=== PATIENT | female | born 1960 | race American Indian/Alaskan Native ===

== ENCOUNTER → 2017-12-22 | Outpatient (CLI) | payer BC ==
[2017-12-24 14:10] LABS: HPV 16 Negative (Negative); HPV 18 Negative (Negative); HPV OTHER HR TYPES Negative (Negative)
[2017-12-24 19:21] LABS: DIAGNOSIS: CommentN
== END | disposition home or self-care (01) ==
LOC: LAB SHORT 15:00 → LAB 15:00
PROVIDERS: Internal Medicine
DX: Z01.419 Encounter for gynecological examination (general) (routine) without abnormal findings (principal)
CPT/HCPCS: 87624; G0145

== ENCOUNTER 2024-08-20 12:11 | Inpatient (IN) | payer OTHER ==
[~2024-08-20] VITALS: Ht 182.9 cm; Wt 60.9 kg
[~2024-08-20 12:11] MED LIST: ALBU90OI INH; AZIT250 PO; BUDESONIDE-FO10.2 G2; DILT120 PO; FLUT.05NI; FURO40 PO; IPRAT-ALBUT 0.5-3 ML INH; LEVALBUTEROL TA15 G1 INH; MONT10T PO; POTA10T PO; POTASSIUM PHOS PO; PRED20; PRED20 PO; PREG25 PO; Prednisone10 MG PO; SODCHL1 PO; SYMBICORT 160-4.6 GM INH; SYNTHROID88 MCG PO; [UNRECOGNIZED DRUG - OTHER] PO
[2024-08-20] MEDS ORDERED: Mag Sulfate 1 GM/D5% 100ML 100 ML IV ONE (12:30)
[2024-08-20] MEDS ORDERED: Ipratropium/Albuterol SulF 2.5-0.5MG/3 ML Amp INH ONE (12:30)
[2024-08-20 12:43] LABS: BASOPHILS ABSOLUTE AUTO 0.02 K/mm3 (0.00-0.23); BASOPHILS PERCENT AUTO 0 % (0-2); EOSINOPHILS ABSOLUTE AUTO 0.00 K/mm3 (0.00-0.68); EOSINOPHILS PERCENT AUTO 0 % (0-6); Hematocrit 38.0 % (33.0-51.0); Hemoglobin 12.5 g/dL (11.5-16.0); IMMATURE GRAN ABSOLUTE AUTO 0.07 K/mm3 (0.00-0.10); IMMATURE GRAN PERCENT AUTO 1 % (0-1); LYMPHOCYTES ABSOLUTE AUTO 0.42 K/mm3 (0.84-5.20); LYMPHOCYTES PERCENT AUTO 4 % (21-46); MONOCYTES ABSOLUTE AUTO 0.17 K/mm3 (0.16-1.47); MONOCYTES PERCENT AUTO 2 % (4-13); Mean Corpuscular HGB Conc 32.9 g/dL (31.5-36.5); Mean Corpuscular Volume 98 fL (80-100); NEUTROPHILS ABSOLUTE AUTO 9.13 K/mm3 (1.96-9.15); NEUTROPHILS PERCENT AUTO 93 % (41-73); NRBC ABSOLUTE 0.00 K/mm3 (0.00-0.02); NRBC Auto 0.0 /100 WBC (0.0-0.2); Platelet Count 377 K/mm3 (150-400); RDW Coefficient Variation 13.5 % (11.7-14.2); RDW Standard Deviation 49.5 fL (35.1-46.3)
[2024-08-20 13:18] LABS: Alanine Aminotransfer (ALT/SGP 37.0 U/L (12-78); Albumin, Blood 3.5 g/dL (3.4-5.0); Albumin/Globulin Ratio 0.9 (0.8-1.8); Anion Gap 10.0 mmol/L (3-11); Aspartate Aminotrans (AST/SGOT 18.0 U/L (12-37); Bilirubin, Total 0.3 mg/dL (0.1-1.0); Blood Urea Nitrogen 14.0 mg/dL (8-24); CO2, Blood 29.0 mmol/L (21-32); Calcium, Blood 8.9 mg/dL (8.5-10.1); Chloride, Blood 97.0 mmol/L (98-108); Creatinine, Blood 0.67 mg/dL (0.40-1.00); Globulin, Blood 3.7 g/dL (2.2-4.0); Glucose, Blood 221.0 mg/dL (70-99); Potassium, Blood 4.3 mmol/L (3.5-5.5); Sodium, Blood 132.0 mmol/L (136-145); Total Protein, Blood 7.2 g/dL (6.4-8.2)
[2024-08-20 13:56] LABS: Influenza A, PCR NEGATIVE (NEGATIVE); Influenza B, PCR NEGATIVE (NEGATIVE); Resp Syncytial Virus, PCR NEGATIVE (NEGATIVE); SARS-Cov-2 (COVID-19) PCR, MMC NEGATIVE (NEGATIVE)
[2024-08-20] MEDS ORDERED: Ipratropium/Albuterol SulF 2.5-0.5MG/3 ML Amp INH SCH (15:15)
[2024-08-20] MEDS ORDERED: CefTRIAXone Sodium 1,000 MG in NS 100 ML IV SCH (16:00)
[2024-08-20 16:37] VITALS: BP 152/89
--- NOTE | 2024-08-20 16:57 | NUR ---
PT STATES SHE HAS ALLERGIES TO A BUNCH OF MEDICATIONS, BUT SHE IS UNABLE TO LIST THEM. SHE IS ASKING ABOUT PAIN MEDS, AND WHEN I ASKED IF SHE IS ALLERGIC TO ANY SHE SAID PRETTY MUCH EVERYTHING EXCEPT MORPHINE. SHE SAYS THAT [facility] HAS THE LIST, BUT THEY ARE CLOSED TODAY. WILL BRING A LIST OF HOME MEDS WHEN HE COMES BACK IN.
--- NOTE | 2024-08-20 18:33 | NUR ---
SHIFT NOTE: MD WAS ABLE TO GET LIST OF ALLERGIES. ALLERGY LIST UP TO DATE. PT'S PAIN HAS BEEN TREATED WITH MORPHINE PER EMAR. PT ALERT AND ORIENTED AND ABLE TO MAKE HER NEEDS KNOWN. SHE REPORTS ANXIETY AND SOB. SHE IS ON RA WITH SPO2>95%. SHE IS IN NSR 90S DENIES CHEST PAIN/PRESSURE. CALL LIGHT IN REACH, CARE CONTINUES
[2024-08-20 20:09] VITALS: BP 163/84
[2024-08-20 23:38] VITALS: BP 136/92
[2024-08-21 04:14] VITALS: BP 121/67
--- NOTE | 2024-08-21 05:28 | NUR ---
SHIFT SUMMARY PT A&O X4, ANXIOUS AT TIMES. SHE IS COOPERATIVE TO CARE. PT REPORTS BR AT BL AT HOME FOR THE LAST MONTH. HX OF MS, SHE HAS SOME RELATED WEAKNESS. SHE IS ABLE TO REPOSTION HERSELF AND TURN IN BED. HR IN THE 70'S-80'S, SINUS RHYTHM, SHE DENIES ANY CP/PRESSURE, SBP STABLE. O2 >92% ON RA-2L VIA NC, PT REPORTS 2-4L VIA NC AT BASELINE. SHE HAS SOME SOB WITH EXERTION. PT RESTED IN BED MOST OF NIGHT. SHE DID HAVE AN EPISODE OF SOME SOB THIS AM, PRN BREATHING TX GIVEN PT REPORTS FEELING MUCH BETTER AT THSI TIME, BREATHING EVEN AND UNLABORED. PT DENIES ANY QUESTIONS/CONCERNS AT THIS TIME. WILL MONITOR PT AND REPORT TO ONCOMING RN.
[2024-08-21 05:55] LABS: BASOPHILS ABSOLUTE AUTO 0.01 K/mm3 (0.00-0.23); BASOPHILS PERCENT AUTO 0 % (0-2); EOSINOPHILS ABSOLUTE AUTO 0.00 K/mm3 (0.00-0.68); EOSINOPHILS PERCENT AUTO 0 % (0-6); Hematocrit 32.8 % (33.0-51.0); Hemoglobin 11.8 g/dL (11.5-16.0); IMMATURE GRAN ABSOLUTE AUTO 0.05 K/mm3 (0.00-0.10); IMMATURE GRAN PERCENT AUTO 1 % (0-1); LYMPHOCYTES ABSOLUTE AUTO 0.56 K/mm3 (0.84-5.20); LYMPHOCYTES PERCENT AUTO 6 % (21-46); MONOCYTES ABSOLUTE AUTO 0.20 K/mm3 (0.16-1.47); MONOCYTES PERCENT AUTO 2 % (4-13); Mean Corpuscular HGB Conc 36.0 g/dL (31.5-36.5); Mean Corpuscular Volume 95 fL (80-100); NEUTROPHILS ABSOLUTE AUTO 8.30 K/mm3 (1.96-9.15); NEUTROPHILS PERCENT AUTO 91 % (41-73); NRBC ABSOLUTE 0.00 K/mm3 (0.00-0.02); NRBC Auto 0.0 /100 WBC (0.0-0.2); Platelet Count 529 K/mm3 (150-400); RDW Coefficient Variation 13.3 % (11.7-14.2); RDW Standard Deviation 46.6 fL (35.1-46.3)
[2024-08-21 06:25] LABS: Anion Gap 8.0 mmol/L (3-11); Blood Urea Nitrogen 16.0 mg/dL (8-24); CO2, Blood 28.0 mmol/L (21-32); Calcium, Blood 8.4 mg/dL (8.5-10.1); Chloride, Blood 97.0 mmol/L (98-108); Creatinine, Blood 0.72 mg/dL (0.40-1.00); Glucose, Blood 160.0 mg/dL (70-99); Potassium, Blood 4.1 mmol/L (3.5-5.5); Sodium, Blood 129.0 mmol/L (136-145)
[2024-08-21 07:50] VITALS: BP 145/89
[2024-08-21] MEDS ORDERED: Enoxaparin 40 MG/0.4 ML SYR SC SCH (09:00)
[2024-08-21] MEDS ORDERED: Lactobacil 2-S.Thermo-Bifido 1 1 Cap PO SCH (09:00)
[2024-08-21 11:56] VITALS: BP 133/84
[2024-08-21] MEDS ORDERED: Saline Nasal Spray 45 ML PRN (13:20)
[2024-08-21 15:51] VITALS: BP 137/73
--- NOTE | 2024-08-21 17:06 | NUR ---
PT IS A&Ox4 AND ABLE TO MAKE NEEDS KNOWN. SHE IS CURRENTLY ON 1LNC W/O2 SATS > 90%. SHE HAS A PUREWICK IN PLACE D/T URGENCY AND WEAKNESS. SHE WAS ABLE TO AMBULATE TO THE [facility] [place] W/WALKER AND x1 ASSIST TODAY. IS @ THE BEDSIDE. NO NEEDS OR CONCERNS NOTED @ THIS TIME. BED IN LOW POSITION, CALL LIGHT AND PERSONAL BELONGINGS IN REACH.
--- NOTE | 2024-08-21 18:03 | NUR ---
CALLED REPORT TO CELSO DANIELS @ [phone]. PT TRANSPORTED VIA WC TO ROOM [id number] @ 1800.
--- NOTE | 2024-08-21 18:34 | NUR ---
PATIENT ARRIVED TO MEDICAL FLOOR AROUND 1809. A/O X4, TALKATIVE. ON 1 LITER NC. PUREWICK PLACED, PATIENT STATES SHE HAS NO CONTROL OVER HER BLADDER AT THIS TIME DUE TO MS FLAREUP. SKIN INTACT ON TRANSFER. BLANCA ADMIN PER APR. CALL LIGHT IN REACH, ORIENTED TO ROOM. ABLE TO MAKE NEEDS KNOWN.
[2024-08-21 19:27] VITALS: BP 146/82
[2024-08-22 04:36] VITALS: BP 139/90
[2024-08-22] MEDS ORDERED: Albuterol 2.5 MG/3 ML VIAL INH PRN (04:50)
[2024-08-22 06:13] LABS: BASOPHILS ABSOLUTE AUTO 0.01 K/mm3 (0.00-0.23); BASOPHILS PERCENT AUTO 0 % (0-2); EOSINOPHILS ABSOLUTE AUTO 0.00 K/mm3 (0.00-0.68); EOSINOPHILS PERCENT AUTO 0 % (0-6); Hematocrit 35.6 % (33.0-51.0); Hemoglobin 12.0 g/dL (11.5-16.0); IMMATURE GRAN ABSOLUTE AUTO 0.06 K/mm3 (0.00-0.10); IMMATURE GRAN PERCENT AUTO 1 % (0-1); LYMPHOCYTES ABSOLUTE AUTO 0.70 K/mm3 (0.84-5.20); LYMPHOCYTES PERCENT AUTO 7 % (21-46); MONOCYTES ABSOLUTE AUTO 0.30 K/mm3 (0.16-1.47); MONOCYTES PERCENT AUTO 3 % (4-13); Mean Corpuscular HGB Conc 33.7 g/dL (31.5-36.5); Mean Corpuscular Volume 97 fL (80-100); NEUTROPHILS ABSOLUTE AUTO 8.85 K/mm3 (1.96-9.15); NEUTROPHILS PERCENT AUTO 89 % (41-73); NRBC ABSOLUTE 0.00 K/mm3 (0.00-0.02); NRBC Auto 0.0 /100 WBC (0.0-0.2); Platelet Count 382 K/mm3 (150-400); RDW Coefficient Variation 13.2 % (11.7-14.2); RDW Standard Deviation 46.6 fL (35.1-46.3)
--- NOTE | 2024-08-22 06:30 | NUR ---
SHIFT SUMMARY: Pt is admitted for COPD exacerbation and is a full code. Is alert and able to make needs known. ADLs have to SBA - 1p depending on activity. Pain was managed with PRN medication. Purewick in place and draining clear yellow urine.
[2024-08-22 06:39] LABS: Anion Gap 6.0 mmol/L (3-11); Blood Urea Nitrogen 21.0 mg/dL (8-24); CO2, Blood 30.0 mmol/L (21-32); Calcium, Blood 9.0 mg/dL (8.5-10.1); Chloride, Blood 96.0 mmol/L (98-108); Creatinine, Blood 0.59 mg/dL (0.40-1.00); Glucose, Blood 155.0 mg/dL (70-99); Potassium, Blood 4.1 mmol/L (3.5-5.5); Sodium, Blood 128.0 mmol/L (136-145)
[2024-08-22 07:37] VITALS: BP 133/79
[2024-08-22] MEDS ORDERED: Formoterol/Mometasone MDI 5/200 mcg 13 GM INH SCH (10:30)
[2024-08-22] MEDS ORDERED: CefTRIAXone Sodium 1,000 MG in NS 100 ML IV SCH (16:00)
[2024-08-22] MEDS ORDERED: SODCHL1 PO (16:02)
[2024-08-22] MEDS ORDERED: CEFP200 PO (16:02)
[2024-08-22] MEDS ORDERED: VISBIOME 112.51 EACH PO (16:03)
[2024-08-22] MEDS ORDERED: MONT10T PO (16:03)
[2024-08-22] MEDS ORDERED: SPIRIVA RESPIMAT4 G3 INH (16:04)
--- NOTE | 2024-08-22 16:59 | NUR ---
PT DISCHARGED HOME. NEW RX FAXED TO [facility] PER REQUEST. PT ABLE TO STAND AND AMBULATE TO WITH [facility] INDEPENDENTLY. DISCHARGE PACKET AND MEDICATIONS REVIEWED WITH PT AND PT SPOUSE. IV REMOVED AND SITE APPEARS WNL. PT WHEELED DOWN TO PRIVATE VEHICLE BY RN.
[2024-08-22] MEDS ORDERED: Fluticasone 0.05% Nasal Spray SCH (21:00)
[2024-08-24] MEDS ORDERED: Potassium Chloride 10 Meq Tablet SA PO SCH (09:00)
== END 2024-08-22 17:00 | disposition home or self-care (01) | DRG 189 ==
LOC: ER 12:11 → PCU 15:12 → MEDS 08-21 18:06
PROVIDERS: Emergency Medicine; ADMIT Student in an Organized Health Care Education/Training Program
DX: J96.21 Acute and chronic respiratory failure with hypoxia (principal); E87.1 Hypo-osmolality and hyponatremia; I47.19 Other supraventricular tachycardia; J44.1 Chronic obstructive pulmonary disease with (acute) exacerbation; R64 Cachexia; Z68.1 Body mass index [BMI] 19.9 or less, adult; E03.9 Hypothyroidism, unspecified; G35 Multiple sclerosis; R73.9 Hyperglycemia, unspecified; J43.9 Emphysema, unspecified; E88.01 Alpha-1-antitrypsin deficiency; R63.1 Polydipsia; Z88.8 Allergy status to other drugs, medicaments and biological substances; Z88.6 Allergy status to analgesic agent; Z88.5 Allergy status to narcotic agent; Z88.0 Allergy status to penicillin; Z79.890 Hormone replacement therapy; Z79.899 Other long term (current) drug therapy; Z79.51 Long term (current) use of inhaled steroids; Z79.52 Long term (current) use of systemic steroids; Z99.81 Dependence on supplemental oxygen
CPT/HCPCS: 36415; 71045; 80048; 80053; 82947; 83880; 84439; 84481; 84484; 85025; 85379; 87637; 93005; 93010; 94640; 94664; 94762; 96365; 96375; 99285-25; A9270; J0696; J1650; J2919; J3475; J7512

== ENCOUNTER 2024-11-02 07:25 | Emergency (ER) | payer MEDICARE, OTHER ==
[~2024-11-02] VITALS: Ht 182.9 cm; Wt 56.7 kg
[~2024-11-02 07:25] MED LIST changes: +CEFP200 PO; +SPIRIVA RESPIMAT4 G3 INH; +VISBIOME 112.51 EACH PO
[2024-11-02] MEDS ORDERED: Ondansetron HCl 2 MG / ML 2ML Vial IV ONE ×3 (09:35→15:45)
[2024-11-02 09:55] LABS: BASOPHILS ABSOLUTE AUTO 0.08 K/mm3 (0.00-0.23); BASOPHILS PERCENT AUTO 1 % (0-2); EOSINOPHILS ABSOLUTE AUTO 0.14 K/mm3 (0.00-0.68); EOSINOPHILS PERCENT AUTO 1 % (0-6); Hematocrit 41.2 % (33.0-51.0); Hemoglobin 14.0 g/dL (11.5-16.0); IMMATURE GRAN ABSOLUTE AUTO 0.04 K/mm3 (0.00-0.10); IMMATURE GRAN PERCENT AUTO 0 % (0-1); LYMPHOCYTES ABSOLUTE AUTO 3.03 K/mm3 (0.84-5.20); LYMPHOCYTES PERCENT AUTO 27 % (21-46); MONOCYTES ABSOLUTE AUTO 0.88 K/mm3 (0.16-1.47); MONOCYTES PERCENT AUTO 8 % (4-13); Mean Corpuscular HGB Conc 34.0 g/dL (31.5-36.5); Mean Corpuscular Volume 92 fL (80-100); NEUTROPHILS ABSOLUTE AUTO 7.24 K/mm3 (1.96-9.15); NEUTROPHILS PERCENT AUTO 63 % (41-73); NRBC ABSOLUTE 0.00 K/mm3 (0.00-0.02); NRBC Auto 0.0 /100 WBC (0.0-0.2); Platelet Count 393 K/mm3 (150-400); RDW Coefficient Variation 13.2 % (11.7-14.2); RDW Standard Deviation 44.6 fL (35.1-46.3)
[2024-11-02 10:19] LABS: Alanine Aminotransfer (ALT/SGP 40.0 U/L (12-78); Albumin, Blood 3.0 g/dL (3.4-5.0); Albumin/Globulin Ratio 0.9 (0.8-1.8); Anion Gap 6.0 mmol/L (3-11); Aspartate Aminotrans (AST/SGOT 31.0 U/L (12-37); Bilirubin, Total 0.4 mg/dL (0.1-1.0); Blood Urea Nitrogen 12.0 mg/dL (8-24); CO2, Blood 26.0 mmol/L (21-32); Calcium, Blood 8.5 mg/dL (8.5-10.1); Chloride, Blood 101.0 mmol/L (98-108); Creatinine, Blood 0.52 mg/dL (0.40-1.00); Globulin, Blood 3.4 g/dL (2.2-4.0); Glucose, Blood 106.0 mg/dL (70-99); Magnesium, Blood 2.0 mg/dL (1.6-2.4); Phosphorus, Blood 5.6 mg/dL (2.5-4.9); Potassium, Blood 3.2 mmol/L (3.5-5.5); Sodium, Blood 130.0 mmol/L (136-145); Total Protein, Blood 6.4 g/dL (6.4-8.2)
[2024-11-02] MEDS ORDERED: Morphine Sulfate 4 MG/1 ML Injection IV ONE (10:20)
[2024-11-02 10:50] LABS: Influenza A, PCR NEGATIVE (NEGATIVE); Influenza B, PCR NEGATIVE (NEGATIVE); Resp Syncytial Virus, PCR NEGATIVE (NEGATIVE); SARS-Cov-2 (COVID-19) PCR, MMC NEGATIVE (NEGATIVE)
[2024-11-02 11:20] LABS: Source, Urine Clean Catch
[2024-11-02 11:26] LABS: Bilirubin, Urine Neg (Neg); Color, Urine Yellow (P-Yellow); Glucose Qualitative, Urine Neg (Neg); Ketones, Urine Neg (Neg); Leukocyte Esterase, Urine Neg (Neg); Protein, Urine 1+ (Neg); Specific Gravity, Urine 1.010 (1.003-1.022); Urobilinogen, Urine NORM (Normal)
[2024-11-02 11:32] LABS: Red Blood Cells, Urine 0-2 /hpf (0-2); White Blood Cells, Urine 0-2 /hpf (0-5)
[2024-11-02] MEDS ORDERED: NS 1,000 ML IV SCH (11:35)
[2024-11-02] MEDS ORDERED: ONDA4ODT MM (14:54)
[2024-11-02 15:30] VITALS: BP 133/90
== END 2024-11-02 16:19 | disposition home or self-care (01) ==
LOC: ER 07:25
PROVIDERS: Physician Assistant
DX: R11.2 Nausea with vomiting, unspecified (principal); J44.89 Other specified chronic obstructive pulmonary disease; Z79.51 Long term (current) use of inhaled steroids; Z79.899 Other long term (current) drug therapy; Z79.52 Long term (current) use of systemic steroids; Z88.0 Allergy status to penicillin; Z88.5 Allergy status to narcotic agent; Z88.6 Allergy status to analgesic agent
CPT/HCPCS: 51701; 71045; 80053; 81001; 83605; 83690; 83735; 84100; 84484; 85025; 87637; 93005; 93010; 96361; 96374; 96375; 96376; 99284-25; A9270; J2270; J2405; J3480; J7030; J7050; J7120

== ENCOUNTER 2024-11-04 10:11 | Emergency (ER) | payer MEDICARE, OTHER ==
[~2024-11-04] VITALS: Ht 182.9 cm; Wt 54.4 kg
[~2024-11-04 10:11] MED LIST changes: +ONDA4ODT MM
[2024-11-04] MEDS ORDERED: Ondansetron HCl 2 MG / ML 2ML Vial IV PRN (10:15)
[2024-11-04 10:35] LABS: BASOPHILS ABSOLUTE AUTO 0.08 K/mm3 (0.00-0.23); BASOPHILS PERCENT AUTO 1 % (0-2); EOSINOPHILS ABSOLUTE AUTO 0.23 K/mm3 (0.00-0.68); EOSINOPHILS PERCENT AUTO 2 % (0-6); Hematocrit 40.8 % (33.0-51.0); Hemoglobin 14.0 g/dL (11.5-16.0); IMMATURE GRAN ABSOLUTE AUTO 0.03 K/mm3 (0.00-0.10); IMMATURE GRAN PERCENT AUTO 0 % (0-1); LYMPHOCYTES ABSOLUTE AUTO 3.41 K/mm3 (0.84-5.20); LYMPHOCYTES PERCENT AUTO 28 % (21-46); MONOCYTES ABSOLUTE AUTO 0.91 K/mm3 (0.16-1.47); MONOCYTES PERCENT AUTO 8 % (4-13); Mean Corpuscular HGB Conc 34.3 g/dL (31.5-36.5); Mean Corpuscular Volume 95 fL (80-100); NEUTROPHILS ABSOLUTE AUTO 7.42 K/mm3 (1.96-9.15); NEUTROPHILS PERCENT AUTO 62 % (41-73); NRBC ABSOLUTE 0.00 K/mm3 (0.00-0.02); NRBC Auto 0.0 /100 WBC (0.0-0.2); Platelet Count 375 K/mm3 (150-400); RDW Coefficient Variation 13.5 % (11.7-14.2); RDW Standard Deviation 47.0 fL (35.1-46.3)
[2024-11-04 10:57] LABS: Alanine Aminotransfer (ALT/SGP 40.0 U/L (12-78); Albumin, Blood 2.7 g/dL (3.4-5.0); Albumin/Globulin Ratio 0.8 (0.8-1.8); Anion Gap 8.0 mmol/L (3-11); Aspartate Aminotrans (AST/SGOT 32.0 U/L (12-37); Bilirubin, Total 0.4 mg/dL (0.1-1.0); Blood Urea Nitrogen 10.0 mg/dL (8-24); CO2, Blood 23.0 mmol/L (21-32); Calcium, Blood 8.0 mg/dL (8.5-10.1); Chloride, Blood 106.0 mmol/L (98-108); Creatinine, Blood 0.5 mg/dL (0.40-1.00); Globulin, Blood 3.2 g/dL (2.2-4.0); Glucose, Blood 91.0 mg/dL (70-99); Potassium, Blood 3.4 mmol/L (3.5-5.5); Sodium, Blood 134.0 mmol/L (136-145); Total Protein, Blood 5.9 g/dL (6.4-8.2)
[2024-11-04 12:23] LABS: Influenza A, PCR NEGATIVE (NEGATIVE); Influenza B, PCR NEGATIVE (NEGATIVE); Resp Syncytial Virus, PCR NEGATIVE (NEGATIVE); SARS-Cov-2 (COVID-19) PCR, MMC NEGATIVE (NEGATIVE)
[2024-11-04] MEDS ORDERED: Metoclopramide HCl 5MG / ML 2ML Vial IV ONE ×2 (16:00→17:50)
[2024-11-04] MEDS ORDERED: NS 1,000 ML IV SCH (16:00)
[2024-11-04] MEDS ORDERED: Ipratropium/Albuterol SulF 2.5-0.5MG/3 ML Amp INH ONE (16:00)
[2024-11-04] MEDS ORDERED: Potassium Chloride 10 Meq Tablet SA PO ONE ×2 (16:00→18:25)
[2024-11-04] MEDS ORDERED: Morphine Sulfate 4 MG/1 ML Injection IV ONE (16:00)
[2024-11-04] MEDS ORDERED: MORP15ER PO (17:39)
[2024-11-04] MEDS ORDERED: METO10 PO (18:38)
[2024-11-04 18:52] VITALS: BP 146/89
== END 2024-11-04 18:52 | disposition home or self-care (01) ==
LOC: ER 10:11
PROVIDERS: Physician Assistant; Student in an Organized Health Care Education/Training Program
DX: A08.4 Viral intestinal infection, unspecified (principal); J44.9 Chronic obstructive pulmonary disease, unspecified; J43.9 Emphysema, unspecified; R06.02 Shortness of breath; R07.9 Chest pain, unspecified; E87.1 Hypo-osmolality and hyponatremia; E87.6 Hypokalemia; D72.829 Elevated white blood cell count, unspecified; E03.9 Hypothyroidism, unspecified; Z79.52 Long term (current) use of systemic steroids; Z79.899 Other long term (current) drug therapy; Z79.51 Long term (current) use of inhaled steroids; Z88.0 Allergy status to penicillin; Z88.5 Allergy status to narcotic agent; Z88.6 Allergy status to analgesic agent
CPT/HCPCS: 71046; 80053; 83690; 83880; 84484; 85025; 87637; 93005; 93010; 96374; 96375; 99285-25; A9270; J2270; J2765; J7030